=== PATIENT | male | born 1955 | race Caucasian/White ===

== ENCOUNTER → 2021-11-14 10:44 | Outpatient (CLI) | payer MEDICARE, OTHER, SELFPAY ==
--- NOTE | 2021-11-14 | DI.US.S_ITS ---
PROCEDURE: US ABD AORTA ANEURYSM SCREEN INDICATIONS: SCREEN TECHNIQUE: Real time scanning was performed of the aorta and iliac arteries, with image documentation. COMPARISON: None. FINDINGS: Aorta: The proximal aorta is not well seen, secondary to overlying bowel gas. Mid-aorta measures 2 cm. Distal aortic diameter is 1.8 cm. Iliac arteries: Right common iliac artery measures 1.1 cm. Left common iliac artery measures 1.1 cm. IMPRESSION: Negative for aneurysm. Dictated by: Markos Rosenthal M.D. on 11/14/2021 at 10:52 Approved by: Markos Rosenthal M.D. on 11/14/2021 at 10:53
== END ==
PROVIDERS: Family Provider Family Medicine; PCP Family Medicine; Referring Provider Nurse Practitioner Family; Visit Provider Nurse Practitioner Family
DX: Z13.6 Encounter for screening for cardiovascular disorders (principal); E21.3 Hyperparathyroidism, unspecified; I10 Essential (primary) hypertension; E83.51 Hypocalcemia
CPT/HCPCS: 76706; 77080; 93306

== ENCOUNTER → 2023-02-02 15:48 | Outpatient (CLI) | payer MEDICARE, OTHER, SELFPAY ==
--- NOTE | 2023-02-02 | DI.MRI.S_ITS ---
PROCEDURE: MR ANKLE RT WO CON INDICATIONS: Pain in right ankle and joints of right foot TECHNIQUE: Noncontrast sagittal T1 spin echo and T2 fast spin echo with fat saturation, axial proton density fast spin echo and T2 fast spin echo with fat saturation, coronal T1 spin echo and T2 fast spin echo with fat saturation through the ankle/hindfoot. COMPARISON: [facility] [place], CR, XR CALCANEUS RIGHT, 12/30/2022, 14:34. FINDINGS: Image quality: Excellent. Bones and joints: No bone marrow contusions or fractures. [id number] midfoot and hindfoot joint osteoarthritic changes are seen. No osteochondral injuries of the talar dome. Well-defined plantar calcaneal enthesophyte is seen. Small tibiotalar and subtalar joint effusion is noted, no gross intra-articular loose bodies. Medial structures: The posterior tibialis tendon is thickened with moderate amount of fluid distending tendon sheath at the level of mid to distal talus and talonavicular joint. The flexor digitorum longus, and flexor hallucis longus tendons are intact. The posterior tibial neurovascular bundle appears normal within the tarsal tunnel, without extrinsic mass effect. The deltoid ligament and spring ligament are thickened. Lateral structures: The anterior talofibular, calcaneofibular, and posterior talofibular ligaments also appears thickened. More superiorly, the anterior and posterior tibiofibular ligaments appear mildly thickened with intrasubstance T2 hyperintense signal. The tibiofibular syndesmosis is normal in width at 2 mm or less. The peroneus brevis tendon is intact. The peroneus longus tendon is thickened at the level of mid to distal calcaneus and calcaneocuboid joint. Adjacent bony peroneal tubercle and retrotrochlear prominence are normal in size. The sinus tarsi demonstrates normal fatty signal, without edema, fibrosis, or cyst formation. Visualized sinus tarsi components (cervical ligament, interosseous talocalcaneal ligament, roots of the inferior extensor retinaculum) appear normal. The calcaneonavicular and calcaneocuboid components of the bifurcate ligament appear intact. The dorsal calcaneocuboid ligament appears intact. Anterior structures: The tibialis anterior, extensor hallucis longus, and extensor digitorum longus tendons appear intact. The dorsal talonavicular ligament appears intact. Posterior and plantar structures: Achilles tendon is intact. Significant thickening involving medial band of plantar fascia at its calcaneal insertion with surrounding edema. No abductor digiti quinti muscle atrophy to suggest [place] neuropathy. IMPRESSION: 1. Thickened medial band of plantar fascia suggestive of low to moderate grade plantar fasciitis. Well-defined plantar calcaneal enthesophyte. 2. Bgke-le-edtrcgtg midfoot and hindfoot joint osteoarthritis. No fracture or dislocation. Small joint effusion, no gross loose bodies. 3. Moderate grade tenosynovitis involving posterior tibialis tendon at the level of mid to distal talus and talonavicular joint. 4. Tendinosis involving peroneus longus tendon at the level of mid to distal calcaneus and calcaneocuboid joint. 5. Low-grade medial ankle ligament sprain. Low to moderate grade sprain/partial-thickness tear involving lateral ankle ligaments most notably involving anterior talofibular ligament. Dictated by: Wisam Rankin M.D. on 02/02/2023 at 17:07 Approved by: Wisam Rankin M.D. on 02/02/2023 at 17:11
== END ==
PROVIDERS: Family Provider Family Medicine; PCP Family Medicine; Referring Provider Podiatrist; Visit Provider Podiatrist
DX: M19.071 Primary osteoarthritis, right ankle and foot (principal); S93.491A Sprain of other ligament of right ankle, initial encounter; M65.871 Other synovitis and tenosynovitis, right ankle and foot; M77.31 Calcaneal spur, right foot; M25.474 Effusion, right foot; M25.571 Pain in right ankle and joints of right foot
CPT/HCPCS: 73721

== ENCOUNTER → 2024-12-02 08:53 | Outpatient (CLI) | payer MEDICARE, OTHER, SELFPAY ==
--- NOTE | 2024-12-02 08:55 | DI.US.S_ITS ---
PROCEDURE: US SCROTUM INDICATIONS: Elevated estradiol, gynecomastia - r/o tst neoplas TECHNIQUE: Real-time scanning was performed of the scrotum and testicles, with image documentation. Color and pulse Doppler interrogation was performed of both testicles. COMPARISON: None. FINDINGS: Right: Testicle is normal in size at 5.1 x 3.3 x 2.4 cm, and homogenous in echotexture. A 2 mm simple cyst is present near the mediastinum testes. 4 mm epididymal head cyst. Epididymis is otherwise normal in overall size and morphology. Trace, physiologic hydrocele and no significant varicoceles. Overlying scrotal skin is normal in thickness. Normal vascularity by color Doppler flow. Left: Testicle is normal in size at 5.2 x 2.7 x 2.7 cm, and homogeneous in echotexture. No suspicious masses. Ectasia of the rete testes. Two or three small left epididymal head cysts, the largest measuring up to 6 mm. Epididymis is otherwise normal in overall size and morphology. Trace hydrocele and no varicoceles. Overlying scrotal skin is normal in thickness. Normal vascularity in the left testicle. IMPRESSION: No evidence of suspicious testicular mass. Benign small bilateral epididymal head cysts. Dictated by: Madhuri Guerrero M.D. on 12/03/2024 at 20:03 Approved by: Madhuri Guerrero M.D. on 12/03/2024 at 20:08
== END ==
LOC: US 08:54
PROVIDERS: Family Provider Family Medicine; PCP Physician Assistant; Referring Provider Physician Assistant; Visit Provider Physician Assistant
DX: R79.89 Other specified abnormal findings of blood chemistry (principal); N62 Hypertrophy of breast; N50.3 Cyst of epididymis
CPT/HCPCS: 76870

== ENCOUNTER 2025-01-05 07:37 | Emergency (ER) | payer MEDICARE, OTHER, SELFPAY ==
[2025-01-05] VITALS (7 sets, daily range): BP systolic 161; BP diastolic 90; PULSE 60–77; RESP 16–20; TEMP 36.6; O2SAT 94–97; BMI 29.5
--- NOTE | 2025-01-05 07:47 | ED.SKABFB ---
HPI - Skin/Abscess/Foreign Bdy General Chief complaint: Skin/Abscess/Foreign Body Stated complaint: Stitches on Tongue still bleeding, 1 day Time Seen by Provider: 01/05/25 07:46 Source: patient, RN notes reviewed and old records reviewed Mode of arrival: Ambulatory Limitations: no limitations History of Present Illness HPI narrative: 69-year-old male history of atrial fibrillation, hypertension on Eliquis who presents with complaint of bleeding from his tongue. Patient states he accidentally cut his tongue 3 days ago developed bleeding was seen at the emergency department at [facility] in [place] bleeding seemed to have stopped he went home but it reoccurred later that night so returned they placed sutures. Patient states that is seemed to make the bleeding stopped it over the past 2 days particularly starting last night started to have some increase of swelling and increasing clot. Patient notes that he thought he had bit the side of his tongue but the bleeding is from the center. Patient states initially it was fairly rapid but it has been very slow overnight. He thinks that he irritated by swallowing a pill. He is otherwise has a liquid/soft diet. Patient has a continued to take his Eliquis but we would like to stop it. He states no difficulty with breathing, he has a difficulty with speaking. He denies any difficulty swallowing his secretions or saliva. Denies chest pain or shortness of breath no nausea or vomiting no other GI or urinary symptoms. Patient notes he had an episode of atrial fibrillation in 2023 had an ablation afterwards and has not had any more episodes of atrial fibrillation. Reports allergies to naproxen and oxycodone. Patient lives on [address]. Related Data Home Medications ?Medication ?Instructions ?Recorded ?Confirmed hydrochlorothiazide 25 mg tablet 25 mg PO DAILY 12/10/21 02/04/22 Allergies Allergy/AdvReac Type Severity Reaction Status Date / Time naproxen (NAPROXEN) Allergy Mild RASH Verified 02/04/22 13:11 oxycodone (OXYCODONE) Allergy Mild RASH Verified 02/04/22 13:11 Review of Systems Review of Systems ROS Unobtainable: All systems reviewed & are unremarkable except as noted in HPI and below Patient History Medical History Chronic back pain Fractures Knee pain Chicken pox (~1961) Asthma Dry skin Colon polyps (07/03/08) Surgical History Anesthesia History of tonsillectomy (~1966) History of colonoscopy (07/04/13) History of colonoscopy with polypectomy (07/03/08) Family History Father AML (acute myeloid leukemia) Cancer Mother Mental health problem Brother No problems noted. Sister No problems noted. Grandfather No problems noted. Grandmother No problems noted. Grandfather No problems noted. Grandmother No problems noted. Exam Narrative Exam Narrative: GEN: well nourished, well appearing man, alert and oriented x 3, patient appears to be in mild distress. HEENT: Atraumatic, pupils are equal round reactive to light, extraocular movements are intact, nares are clear, there is no conjunctival pallor. Throat is clear without any exudates, erythema, tonsillar enlargement or uvular deviation, patient appears to have a clot on the top of the tongue appears to be somewhat underneath the skin that is proximally a cm in height and 3 cm x 2 cm in length and width. No active bleeding appears to be occurring currently patient does not have any difficulty with swallowing secretions or saliva. HEART: Regular rate and rhythm without murmur, clicks, rubs. LUNGS:Lungs clear to auscultation, no wheezes, rales, crackles, chest moves symmetrically ABD:bowel sounds normal, soft, non-tender, no guarding, rebound, rigidity, no masses noted, no hepatosplenomegaly MSCL: Full range of motion, normal gait NEURO:CN 2-12 intact, sensation normal. Initial Vital Signs Initial Vital Signs: Vital Signs Temperature 97.9 F 01/05/25 07:41 Pulse Rate 77 01/05/25 07:41 Respiratory Rate 16 01/05/25 07:41 Blood Pressure 161/90 H 01/05/25 07:41 Pulse Oximetry 96 01/05/25 07:41 Oxygen Delivery Method Room Air 01/05/25 07:41 Course Orders Ordered: Discontinued Medications Epinephrine (Racepinephrine 0.5 Ml Neb) 0.5 ml INH NOW ONE Stop: 01/05/25 08:25 Last Admin: 01/05/25 08:40 Dose: 0.5 ml Documented By: JAIR Tranexamic Acid 1,000 mg/ (Sodium Chloride) 100 mls @ 200 mls/hr IV NOW ONE Stop: 01/05/25 09:03 Last Infusion: 01/05/25 09:21 Dose: Infused Documented By: Admin: 01/05/25 08:46 Dose: 200 mls/hr Documented By: DEBBI Lidocaine/Epinephrine (Lidocaine 2% W/Epi Inj 20 Ml Vial) 20 ml INJ INTRA-OP ONE Stop: 01/05/25 08:35 Last Admin: 01/05/25 08:46 Dose: 20 ml Documented By: DEBBI Silver Nitrate/Potassium Nitrate (Silver Nitrate Stick) 1 each TOP NOW ONE Stop: 01/05/25 08:39 Last Admin: 01/05/25 08:49 Dose: 1 each Documented By: DEBBI Tranexamic Acid (Tranexamic Acid 1,000 Mg Vial) 500 mg INH NOW ONE Stop: 01/05/25 07:47 Last Admin: 01/05/25 07:54 Dose: 500 mg Documented By: EDITH Vital Signs Vital signs: Vital Signs - 8 hr 01/05/25 07:41 01/05/25 08:40 01/05/25 08:50 Temperature 97.9 F Pulse Rate 77 70 64 Respiratory Rate 16 20 Blood Pressure 161/90 H Pulse Oximetry 96 97 96 Oxygen Delivery Method Room Air Room Air 01/05/25 09:00 01/05/25 09:30 01/05/25 10:00 Temperature Pulse Rate 60 68 66 Respiratory Rate Blood Pressure Pulse Oximetry 94 95 94 Oxygen Delivery Method 01/05/25 10:30 Temperature Pulse Rate 70 Respiratory Rate Blood Pressure Pulse Oximetry 95 Oxygen Delivery Method MDM - Skin/Abscess/Foreign Bdy Lab Data 01/05/25 07:52 01/05/25 07:52 Labs: Lab Results 01/05/25 Range/Units 07:52 WBC 5.3 (4.5-11.0) X10^3/uL RBC 5.53 (4.5-5.9) X10^6/uL Hgb 15.9 (13.5-17.5) g/dL Hct 45.8 (41-53) % MCV 82.9 (80-100) fL MCH 28.7 (26-34) PG MCHC 34.7 (30-36) % RDW 13.3 (11.6-14.8) % Plt Count 171 (150-400) X10^3/uL Neut % (Auto) 63.8 (50-75) % Lymph % (Auto) 15.9 L (25-40) % Carson % (Auto) 13.3 (3-14) % Eos % (Auto) 6.7 H (2-4) % Baso % (Auto) 0.3 (0-2) % Neut # (Auto) 3400 (3423-0300) /uL Lymph # (Auto) 900 L (2428-9732) /uL Carson # (Auto) 700 (0-900) /uL Eos # (Auto) 400 (0-450) /uL Baso # (Auto) 0 (0-100) /uL PT 14.7 H (9.4-12.5) SECONDS INR 1.3 (0.9-1.3) APTT 37 H (25.1-36.5) SECONDS Sodium 141 (137-145) mmol/L Potassium 3.4 (3.4-5.1) mmol/L Chloride 101 (98-107) mmol/L Carbon Dioxide 30 (22-32) mmol/L BUN 15 (9-20) mg/dL Creatinine 1.02 (0.66-1.25) mg/dL Estimated GFR > 60 (>60) mL/min BUN/Creatinine Ratio 14.7 (6-22) Glucose 112 H (70-99) mg/dL Calcium 9.0 (8.4-10.2) mg/dL MDM Narrative Medical decision making narrative: Labs normal white count, hemoglobin and platelets, electrolytes CMP are all normal. Patient received TXA nebulized, racemic nebulized. Patient thin received TXA IV. Has continued to have very slow bleeding. Large Clot was deroofed, patient's incision appears to be healing very well there is a small area of ooze, patient had lidocaine with epinephrine injected which he tolerated well had direct pressure for 10-15 minutes. Patient had already has a significant decrease in his bleeding before this. Afterwards patient was monitored for over an hour has not had any persistent bleeding and patient's felt comfortable for discharge. Records were obtained from [facility], both visits appears patient has a proximally 2 cm laceration had figure-eight sutures placed, 4. Sutures total with [address] Terrence Estrada/ENT @ [phone]. Would ask that we try injecting lidocaine with epi pressure for 10 minutes if continues to persist would potentially have patient come over for intervention. Discussed with the patient we will give him contact for ENT if he is having any recurrence we would recommend he states locally for at least several more hours if not overnight because he lives on [address]. Discussed return precautions. Discharge Plan Departure Patient Disposition: Home Clinical Impression: Hemorrhage of tongue Laceration of tongue with complication Qualifiers: Encounter type: subsequent encounter Qualified Code(s): S01.512D - Laceration without foreign body of oral cavity, subsequent encounter Activity Restrictions/Additional Instructions: If you have recurrent but mild bleeding from your tongue I would recommend swish and spit with very icy cold water and direct pressure for 10 minutes. If bleeding persists either return to the emergency department or you can follow up with ENT. Contacts included below. Spoke with Dr. Estrada today who was the ENT on-call today. Continue to hold your Eliquis for the next 2-3 days if the area seems to be fully healed and you are having no additional bleeding you can restart your medication. Here in the department you received nebulized TXA, racemic epinephrine, IV TXA as well as lidocaine with epinephrine injected into your tongue. You did have labs your hemoglobin was normal as well as your platelets. Please return go to the closest emergency department if you have recurrent bleeding, any difficulty with swelling, difficulty with swallowing or any other new or concerning changes. Prescriptions: No Action hydrochlorothiazide 25 mg tablet 25 mg PO DAILY Referrals: Mario Alberto Armstrong PA-C [Primary Care Provider, Medical] Terrence Estrada MD [Physician, Ear, Nose, Throat] Stand Alone Forms: Patient Portal/API
[2025-01-05] MEDS: TRANEXAMIC ACID 1,000 MG VIAL 500 MG INH (07:54)
--- NOTE | 2025-01-05 07:57 | PC.NURSE ---
reports he takes eliquis for afib. Bit his tongue which required sutures which he had done at [facility] after being flown off [place] where he lives. sutures were placed 4 francis ago. continues to have bleeding and has a golf ball sized clot on his tongue. no trouble swallowing.
[2025-01-05 08:05] LABS: Add Manual Diff / Slide Review NO; Hematocrit 45.8 % (41-53); Hemoglobin 15.9 g/dL (13.5-17.5); Lymphocytes Absolute Auto 900 /uL (1100-4500); Mean Corpuscular HGB Conc 34.7 % (30-36); Mean Corpuscular Hemoglobin 28.7 PG (26-34); Mean Corpuscular Volume 82.9 fL (80-100); Platelet Count 171 X10^3/uL (150-400)
[2025-01-05 08:08] LABS: INR 1.3 (0.9-1.3); Prothrombin Time 14.7 SECONDS (9.4-12.5)
[2025-01-05 08:11] LABS: PTT Partial Thromboplastin Tim 37 SECONDS (25.1-36.5)
[2025-01-05 08:20] LABS: Blood Urea Nitrogen 15 mg/dL (9-20); Calcium 9.0 mg/dL (8.4-10.2); Carbon Dioxide 30 mmol/L (22-32); Chloride 101 mmol/L (98-107); Estimated Glomerular Filt Rate > 60 mL/min (>60); Glucose 112 mg/dL (70-99); HEMOLYSIS < 15 (0-50); Potassium 3.4 mmol/L (3.4-5.1); Sodium 141 mmol/L (137-145)
[2025-01-05] MEDS: RACEPINEPHRINE 0.5 ML NEB INH (08:40)
[2025-01-05] MEDS: TRANEXAMIC ACID 1,000 MG in SODIUM CHLORIDE 0.9% 100 ML 200 MG IV (08:46)
[2025-01-05] MEDS: LIDOCAINE 2% W/EPI INJ 20 ML VIAL INJ (08:46)
[2025-01-05] MEDS: SILVER NITRATE STICK 1 EACH TOP (08:49)
--- NOTE | 2025-01-05 09:01 | RT ---
pt jarett castellanos tx well, Dr Judge at bedside. Pt on room air, no distress noted
== END 2025-01-05 13:19 | disposition home or self-care (01) ==
PROVIDERS: Emergency Provider Emergency Medicine; Family Provider Family Medicine; PCP Physician Assistant
DX: S01.512D Laceration without foreign body of oral cavity, subsequent encounter (principal); K14.8 Other diseases of tongue
CPT/HCPCS: 36415; 80048; 85025; 85610; 85730; 94640; 96365; 99284; J7050

== ENCOUNTER → 2025-01-16 09:41 | Outpatient (CLI) | payer MEDICARE, OTHER, SELFPAY ==
--- NOTE | 2025-01-16 09:43 | DI.CT.S_ITS ---
PROCEDURE: CT ABDOMEN ADRENAL PROTOCOL INDICATIONS: further imaging; gynecomastia TECHNIQUE: Noncontrast 3 mm thick sections acquired from the diaphragms to the iliac crests. After the administration of intravenous contrast, 3 mm thick venous-phase and 15- minute delayed images acquired from the diaphragms to the iliac crests. For radiation dose reduction, the following was used: automated exposure control, adjustment of mA and/or kV according to patient size. COMPARISON: None. FINDINGS: Image quality: Excellent. Lower chest: Unremarkable. ABDOMEN: Adrenal Glands: No adrenal nodules. Liver: No solid mass. 1.1 cm hepatic cyst in segment 2 and 1.7 cm patent cyst in segment 4. Vascular shunt in segment 7, with probable underlying flash filling hemangioma (series 4, image 15). Gallbladder: Cholelithiasis without wall thickening or adjacent fat stranding to suggest acute cholecystitis. Biliary ducts: No biliary dilation. Pancreas: No ductal dilation. Spleen: A few splenic lesions with enhancement. Largest measures 1.4 cm along the superior margin (series 4, image 26), and 1.7 cm along the medial margin (series 4, image 38). Kidneys and Ureters: No hydronephrosis. No solid mass. No complex renal cystic lesion which requires follow up. Stomach and Bowel: Normal colonic caliber, without significant wall thickening. Peritoneum: No abnormal intraperitoneal fluid. No free air. Ventral Wall: No hernia. Abdominal Nodes: No retroperitoneal or mesenteric adenopathy by size criteria. Vessels: Aorta and inferior vena cava are normal in size. Bones: No aggressive osseous abnormality. IMPRESSION: No adrenal nodules. Indeterminate splenic lesions with mild enhancement. In the absence of cancer history, follow-up with MRI would be indicated in 6-12 months (hepatic mass protocol). Cholelithiasis without wall thickening or adjacent fat stranding to suggest acute cholecystitis. Dictated by: Lucas Amaral M.D. on 01/16/2025 at 12:11 Approved by: Lucas Amaral M.D. on 01/16/2025 at 12:22
== END ==
LOC: CT 09:42
PROVIDERS: Family Provider Family Medicine; PCP Physician Assistant; Referring Provider Physician Assistant; Visit Provider Physician Assistant
DX: N62 Hypertrophy of breast (principal); D73.89 Other diseases of spleen; K80.20 Calculus of gallbladder without cholecystitis without obstruction; K76.89 Other specified diseases of liver
CPT/HCPCS: 74170; Q9967